=== PATIENT | male | born 1965 | race Caucasian/White ===

== ENCOUNTER 2021-03-09 09:00 | Inpatient (IN) | payer BC, SELFPAY ==
[~2021-03-09] VITALS: Ht 182.9 cm; Wt 122.5 kg
[2021-03-20 15:30] LABS: BASOPHILS % (AUTO) 0.7 % (0.0-2.0); EOSINOPHILS # (AUTO) 0.2 K/uL (0.0-0.4); EOSINOPHILS % (AUTO) 3.7 % (0.0-4.0); HEMATOCRIT 41.6 % (36-54); HEMOGLOBIN 14.4 g/dL (14.0-18.0); LYMPHOCYTES # (AUTO) 1.6 K/uL (1.0-5.5); LYMPHOCYTES % (AUTO) 25.1 % (20.5-51.5); MEAN CORPUSCULAR HEMOGLOBIN 33 pg (27-31); MEAN CORPUSCULAR HGB CONC 35 % (32-36); MEAN CORPUSCULAR VOLUME 94 fL (79.0-98.0); MONOCYTES # (AUTO) 0.6 K/uL (0.0-1.0); MONOCYTES % (AUTO) 9.4 % (1.7-9.3); NEUTROPHILS # (AUTO) 3.9 K/uL (1.8-7.7); NEUTROPHILS % (AUTO) 61.1 % (40.0-70.0); PLATELET COUNT (AUTO) 217 K/uL (130-430); RED BLOOD CELL COUNT(AUTO) 4.42 MIL/uL (4.2-6.2); RED CELL DISTRIBUTION WIDTH 12.1 % (9.0-15.0); WHITE BLOOD COUNT (AUTO) 6.3 K/uL (4.8-10.8)
[2021-03-20 15:47] LABS: BILIRUBIN,URINE NEGATIVE (NEGATIVE); BLOOD, URINE NEGATIVE (NEGATIVE); CLARITY/URINE CLEAR (CLEAR); COLOR,URINE YELLOW (YELLOW); GLUCOSE,URINE NEGATIVE (NEGATIVE); KETONES,URINE NEGATIVE (NEGATIVE); LEUKOCYTE ESTERASE ,URINE NEGATIVE (NEGATIVE); NITRITE, URINE NEGATIVE (NEGATIVE); PH,URINE 7.5 (5.0-8.0); PROTEIN URINE NEGATIVE (NEGATIVE)
[2021-03-20 15:51] LABS: CALCIUM 8.8 mg/dL (8.4-11.0); CREATININE 1.02 mg/dL (0.55-1.30); POTASSIUM 3.9 mmol/L (3.5-5.1)
[2021-03-20 15:52] LABS: INR 0.9 (0.80-1.20); PROTHROMBIN TIME 9.9 SECS (9.5-12.5)
[2021-03-23] MEDS ORDERED: BUPIVACAINE LIPOSOME/PF 266 MG/20 ML VIAL INFIL ONE (12:35)
[2021-03-23] MEDS ORDERED: NS 1000 ML IV.SOLN IV ONE (12:46)
[2021-03-23] MEDS ORDERED: NS IRRIG SOLN 1000 ML IR ONE (12:46)
[2021-03-23] MEDS ORDERED: ROCURONIUM BROMIDE 10 MG/ML (ZEMURON) IV ONE (12:46)
[2021-03-23] MEDS ORDERED: MORPHINE SULFATE 10MG/10ML PF AMP EP ONE (12:46)
[2021-03-23] MEDS ORDERED: NORMAL SALINE 10 ML VIAL IVP ONE (12:46)
[2021-03-23] MEDS ORDERED: MIDAZOLAM HCL 5 MG/5 ML VIAL IVP ONE (12:46)
[2021-03-23] MEDS ORDERED: CEFAZOLIN 2 GM IVPB PREMIX 50 ML IV ONE (12:46)
[2021-03-23] MEDS ORDERED: GLYCOPYRROLATE 0.2 MG/ML VIAL IJ ONE (12:46)
[2021-03-23] MEDS ORDERED: HETASTARCH/NORMAL SALINE 500 ML IV.SOLN (heSPAN 6%) IV ONE (12:46)
[2021-03-23] MEDS ORDERED: ePHEDrine sulfate 50 MG/ML VIAL IVP ONE (12:46)
[2021-03-23] MEDS ORDERED: ALBUMIN HUMAN 5% 12.5 GM/250 ML VIAL IV ONE (12:46)
[2021-03-23] MEDS ORDERED: PHENYLEPHRINE HCL 10 MG/ML VIAL (NEOSYNEPHRINE) IV ONE (12:46)
[2021-03-23] MEDS ORDERED: DESFLURANE 15 MIN GAS INH ONE (12:46)
[2021-03-23] MEDS ORDERED: DEXAMETHASONE SOD PHOSPHATE 4 MG/ML VIAL IVP ONE (12:46)
[2021-03-23] MEDS ORDERED: PROPOFOL 200MG/ 20ML VIAL (DIPRIVAN) IV ONE (12:46)
[2021-03-23] MEDS ORDERED: BUPIVACAINE /EPINEPHRINE/PF 0.25% 30 ML VIAL INJ ONE (12:46)
[2021-03-23] MEDS ORDERED: LR 1,000 ML IV.SOLN IV ONE (12:46)
[2021-03-23] MEDS ORDERED: LIDOCAINE 1% 10 MG/ML, 20 ML MDV INJ ONE (12:46)
[2021-03-23] MEDS ORDERED: IBUP-1970 PO (13:09)
[2021-03-23] MEDS ORDERED: NEBI5TAB3 PO (13:09)
[2021-03-23] MEDS ORDERED: SIMV10TA97 PO (13:09)
[2021-03-23] MEDS ORDERED: NALOXONE HCL 0.4 MG/ML AMP (NARCAN) IVP PRN ×4 (15:45→18:30)
[2021-03-23] MEDS ORDERED: fentaNYL CITRATE/PF 100 MCG/2 ML AMP IVP PRN ×2 (15:45)
[2021-03-23] MEDS ORDERED: KETOROLAC TROMETHAMINE 60 MG/2 ML VIAL IM PRN (15:45)
[2021-03-23] MEDS ORDERED: NALBUPHINE HCL 10 MG/ML AMP IVP PRN (15:45)
[2021-03-23] MEDS ORDERED: ONDANSETRON HCL 4 MG/2 ML VIAL IVP PRN ×2 (15:45)
[2021-03-23] MEDS ORDERED: DIPHENHYDRAMINE INJ 50 MG/ML VIAL IVP PRN (15:45)
[2021-03-23] MEDS ORDERED: MORPHINE SULFATE 10MG/10ML PF AMP SP SCH (15:45)
[2021-03-23] MEDS ORDERED: METOCLOPRAMIDE HCL 10 MG/2 ML VIAL IVP PRN (15:45)
[2021-03-23] MEDS ORDERED: HYDROmorphone 2 MG/ML VIAL IVP PRN (18:30)
[2021-03-23] MEDS ORDERED: HYDROcodone/ACETAMIN 5-325 MG TAB (NORCO/ VICODIN) PO PRN (18:30)
[2021-03-23] MEDS ORDERED: ONDANSETRON 4 MG ODT TAB PO PRN (18:30)
[2021-03-23 19:06] VITALS: BP_SYST 80
[2021-03-23 20:00] VITALS: BP_SYST 80
[2021-03-23 20:17] VITALS: BP_SYST 80
[2021-03-23] MEDS: DOCUSATE SODIUM 100 MG CAPSULE PO SCH (21:00)
[2021-03-23] MEDS: CEFAZOLIN 1 GM IVPB PREMIX 50 ML IV SCH (22:00)
[2021-03-24] VITALS (7 sets, daily range): BP systolic 72–117
[2021-03-24 07:39] LABS: HEMATOCRIT 29.4 % (36-54); HEMOGLOBIN 9.9 g/dL (14.0-18.0); LYMPHOCYTES # (AUTO) 0.6 K/uL (1.0-5.5); MEAN CORPUSCULAR HEMOGLOBIN 32 pg (27-31); MEAN CORPUSCULAR HGB CONC 34 % (32-36); MEAN CORPUSCULAR VOLUME 94 fL (79.0-98.0); MONOCYTES # (AUTO) 0.9 K/uL (0.0-1.0); MONOCYTES % (AUTO) 7.6 % (1.7-9.3); NEUTROPHILS # (AUTO) 10.1 K/uL (1.8-7.7); NEUTROPHILS % (AUTO) 87.4 % (40.0-70.0); PLATELET COUNT (AUTO) 178 K/uL (130-430); RED BLOOD CELL COUNT(AUTO) 3.15 MIL/uL (4.2-6.2); RED CELL DISTRIBUTION WIDTH 13.3 % (9.0-15.0); WHITE BLOOD COUNT (AUTO) 11.6 K/uL (4.8-10.8)
[2021-03-24] MEDS: ENOXAPARIN SODIUM 40 MG/0.4 ML SYRINGE SUBCUT SCH (09:00)
[2021-03-24] MEDS: DOCUSATE SODIUM 100 MG CAPSULE PO SCH ×2 (09:00→21:52)
[2021-03-24] MEDS: HYDROcodone/ACETAMIN 5-325 MG TAB (NORCO/ VICODIN) PO PRN (10:25)
[2021-03-24] MEDS ORDERED: METOPROLOL TARTRATE 50 MG TABLET PO ONE (11:00)
[2021-03-24] MEDS: CEFAZOLIN 1 GM IVPB PREMIX 50 ML IV SCH ×2 (11:36→18:50)
[2021-03-24] MEDS: ACETAMINOPHEN 325 MG TABLET PO PRN ×2 (15:29→22:26)
[2021-03-24] MEDS: METOPROLOL TARTRATE 50 MG TABLET PO SCH (21:53)
[2021-03-25 00:55] VITALS: BP_SYST 123
[2021-03-25] MEDS: HYDROcodone/ACETAMIN 5-325 MG TAB (NORCO/ VICODIN) PO PRN ×2 (01:03→09:14)
[2021-03-25 08:07] VITALS: BP_SYST 143
[2021-03-25] MEDS: DOCUSATE SODIUM 100 MG CAPSULE PO SCH ×2 (09:12→20:24)
[2021-03-25] MEDS: METOPROLOL TARTRATE 50 MG TABLET PO SCH ×2 (09:13→20:24)
[2021-03-25] MEDS: ENOXAPARIN SODIUM 40 MG/0.4 ML SYRINGE SUBCUT SCH (09:16)
[2021-03-25 11:25] VITALS: BP_SYST 135
[2021-03-25 15:07] VITALS: BP_SYST 129
[2021-03-25] MEDS: ACETAMINOPHEN 325 MG TABLET PO PRN (15:23)
[2021-03-25 20:18] VITALS: BP_SYST 124
[2021-03-25] MEDS: FERROUS SULFATE 325 MG TABLET.DR PO SCH (20:23)
[2021-03-26 00:09] VITALS: BP_SYST 117
[2021-03-26] MEDS: ACETAMINOPHEN 325 MG TABLET PO PRN (00:09)
[2021-03-26 08:05] VITALS: BP_SYST 116
[2021-03-26] MEDS: METOPROLOL TARTRATE 50 MG TABLET PO SCH (09:10)
[2021-03-26] MEDS: FERROUS SULFATE 325 MG TABLET.DR PO SCH ×2 (09:10→21:46)
[2021-03-26] MEDS: DOCUSATE SODIUM 100 MG CAPSULE PO SCH ×2 (09:10→21:46)
[2021-03-26] MEDS: ENOXAPARIN SODIUM 40 MG/0.4 ML SYRINGE SUBCUT SCH (09:14)
[2021-03-26 12:00] VITALS: BP_SYST 131
[2021-03-26 16:00] VITALS: BP_SYST 111
[2021-03-26 20:00] VITALS: BP_SYST 107
[2021-03-26] MEDS: BYSTOLIC 10 MG PO SCH (21:00)
[2021-03-27 00:25] VITALS: BP_SYST 129
[2021-03-27 07:49] LABS: BASOPHILS % (AUTO) 0.4 % (0.0-2.0); EOSINOPHILS # (AUTO) 0.1 K/uL (0.0-0.4); EOSINOPHILS % (AUTO) 1.2 % (0.0-4.0); HEMATOCRIT 27.6 % (36-54); HEMOGLOBIN 9.6 g/dL (14.0-18.0); LYMPHOCYTES # (AUTO) 1.5 K/uL (1.0-5.5); LYMPHOCYTES % (AUTO) 13.4 % (20.5-51.5); MEAN CORPUSCULAR HEMOGLOBIN 32 pg (27-31); MEAN CORPUSCULAR HGB CONC 35 % (32-36); MEAN CORPUSCULAR VOLUME 92 fL (79.0-98.0); MONOCYTES # (AUTO) 1.1 K/uL (0.0-1.0); MONOCYTES % (AUTO) 9.7 % (1.7-9.3); NEUTROPHILS # (AUTO) 8.2 K/uL (1.8-7.7); NEUTROPHILS % (AUTO) 75.3 % (40.0-70.0); PLATELET COUNT (AUTO) 189 K/uL (130-430); RED BLOOD CELL COUNT(AUTO) 2.99 MIL/uL (4.2-6.2); RED CELL DISTRIBUTION WIDTH 12.8 % (9.0-15.0); WHITE BLOOD COUNT (AUTO) 10.9 K/uL (4.8-10.8)
[2021-03-27 08:05] VITALS: BP_SYST 118
[2021-03-27] MEDS: FERROUS SULFATE 325 MG TABLET.DR PO SCH ×2 (08:27→20:46)
[2021-03-27] MEDS: DOCUSATE SODIUM 100 MG CAPSULE PO SCH ×2 (08:27→20:46)
[2021-03-27] MEDS: ENOXAPARIN SODIUM 40 MG/0.4 ML SYRINGE SUBCUT SCH (08:28)
[2021-03-27 13:11] VITALS: BP_SYST 142
[2021-03-27 17:16] VITALS: BP_SYST 110
[2021-03-27 20:15] VITALS: BP_SYST 105
[2021-03-27] MEDS: BYSTOLIC 10 MG PO SCH (20:49)
[2021-03-27 23:23] VITALS: BP_SYST 105
[2021-03-28 00:33] VITALS: BP_SYST 124
[2021-03-28 04:19] VITALS: BP_SYST 122
[2021-03-28] MEDS: DOCUSATE SODIUM 100 MG CAPSULE PO SCH (08:20)
[2021-03-28] MEDS: FERROUS SULFATE 325 MG TABLET.DR PO SCH (08:20)
[2021-03-28 08:22] VITALS: BP_SYST 111
[2021-03-28] MEDS: ENOXAPARIN SODIUM 40 MG/0.4 ML SYRINGE SUBCUT SCH (08:22)
[2021-03-28 12:47] VITALS: BP_SYST 114
[2021-03-28] MEDS: ACETAMINOPHEN 325 MG TABLET PO PRN (12:50)
[2021-03-28 15:46] VITALS: BP_SYST 122
[2021-03-28] MEDS ORDERED: HYDR-3917 PO (18:47)
[2021-03-28 18:50] VITALS: BP_SYST 122
== END 2021-03-28 19:53 | disposition home health service (06) | DRG 470 ==
LOC: SMU 03-23 11:19 → STU 03-23 17:37
PROVIDERS: ADMIT Orthopaedic Surgery; ATTEND Orthopaedic Surgery
PROC: 0SR90JZ Replacement of Right Hip Joint with Synthetic Substitute, Open Approach (ICD-10-PCS; 2021-03-23)
PROC: 30233N1 Transfusion of Nonautologous Red Blood Cells into Peripheral Vein, Percutaneous Approach (ICD-10-PCS; principal; 2021-03-23 13:54)
DX: M16.11 Unilateral primary osteoarthritis, right hip (principal); M87.851 Other osteonecrosis, right femur; Z20.822 Contact with and (suspected) exposure to COVID-19; G25.0 Essential tremor; I10 Essential (primary) hypertension; E78.5 Hyperlipidemia, unspecified; B35.1 Tinea unguium; E66.9 Obesity, unspecified; Z68.36 Body mass index [BMI] 36.0-36.9, adult
CPT/HCPCS: 36415; 71046-TC; 72170-TC; 80048; 81003; 85025; 85610-TC; 85730-TC; 86886; 86900; 86901; 86920; 87081; 88304; 88311; 93005; 97110-GP; 97112-GP; 97116-GP; 97530-GP; C9290; G0378; J0690; J1100; J1650; J2001; J2250; J2274; J2370; J2704; J3490; J7030; J7120; P9021; P9041; U0003